=== PATIENT | male | born 1955 | race Caucasian/White ===

== ENCOUNTER → 2024-10-04 | Outpatient (CLI) | payer MEDICARE, SELFPAY ==
--- NOTE | 2024-10-04 14:00 | XR_ITS ---
Examination: CT pelvis without intravenous contrast. 2-D sagittal and coronal reconstructions. Date and time of exam:October 04, 2024 1343 hours INDICATIONS: Diagnosis malignant neoplasm prostate July 2023 restaging CTDI: vol (mGy) :4.99 DLP: (mGycm) : 169 Technique: Multiple 3 mm axial sections of the pelvis have been obtained with the 64 slice high resolution scanner. 2-D sagittal and coronal reconstructions. Low dose protocols were performed. One or more of the following dose reduction techniques were used; automated exposure control, adjustment of the mA and/or KV according to patient size, use of iterative reconstruction technique. Findings: Normal appendix No pelvic lymphadenopathy Colonic diverticulosis, no diverticulitis Prostate is markedly enlarged with irregular contour, AP dimension 5.9 cm Negative for osteoblastic metastatic disease IMPRESSION: Marked prostatomegaly, AP dimension 5.9 cm irregular contour No pelvic lymphadenopathy Negative for osteoblastic metastatic disease
== END | disposition home or self-care (01) ==
PROVIDERS: PCP Internal Medicine; Referring Provider Surgery; Visit Provider Surgery
DX: N40.0 Benign prostatic hyperplasia without lower urinary tract symptoms (principal); C61 Malignant neoplasm of prostate
CPT/HCPCS: 72192

== ENCOUNTER 2024-12-13 13:35 | Outpatient (RCR) | payer MEDICARE, SELFPAY ==
--- NOTE | 2024-12-13 15:57 | CTCCONSULT_ITS ---
[facility] [address] [place], [place] [address] Consultation Note Date: 12/13/2024 MR#: [id number] Name: JENNIFER DELVALLE : 1955 Dx: C61 prostate cancer Attending physician. Vikas Vila MD Referring physician. Ronald Yee MD Reason for consultation. 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 History of Present Illness: Patient is a 67-year-old gentleman with PSA of 8.9 with prostate grade 6 and 7 (3+3) (3+4) group 1 and 2 involving right and left prostate. On biopsy of 08/10/2023. Patient appeared to opt for watchful waiting but when PSA madeline to 16.8 on 03/04/2024 was interested in getting it treated. Bone scan 12/04/2023 nonspecific uptake in C-spine L-spine which was negative on plain x-rays, for mets. Had pelvic CT 10/04/2024 revealing prostatomegaly with no pelvic lymphadenopathy and negative for osteoblastic met disease. Patient is now seeing Dr Yee who has initiated Lupron shots a month ago. Patient now referred for radiation oncology consultation. Past Medical History: High blood pressure diabetes prostatism Meds. Metformin lisinopril Tums Ernandez and atorvastatin Flomax Social History: Patient bilingual originally from [place] is a moderate drinker non-smoker Review of Systems: Has had nocturia prostatism symptoms. Physical Exam: General: Well-appearing gentleman in no acute distress HEENT: Atraumatic normocephalic extraocular is intact no oral lesion no cervical or supraclavicular adenopathy. CV: Chest clear to auscultation heart regular rate and rhythm ABD: Soft no organomegaly or tenderness EXT: No signs of clubbing or edema Assessment:#1. Group 1 and 2 adeno CA prostate biopsy 08/07/2023. #2. Patient opted for watchful waiting initially. #3. With rising PSA from 8.9 - 16.8 has opted for treatments and received his first Lupron injections under Dr. Yee a month ago according to patient #4. Shall schedule patient for CT SIM, over the next few weeks, and approximately 7000 cGy to the prostate region will be delivered to patient. Side effects explained. #5. Thank you very much for allowing me to evaluate this patient. Cc: Vikas Yee MD Electronically signed by: Daniel Reina MD, DABR 12/13/2024 3:55 PM
--- NOTE | 2024-12-13 15:59 | CTCTXPLN_ITS ---
[facility] [address] [place], [place] [address] Physician Clinical Treatment Planning Note Date of Service: 12/13/2024 Name: JENNIFER Love.: 1955 The patient has agreed to proceed with Radiation therapy. Tests and supporting medical records were interpreted to assist in defining the tumor location and extent of disease. Further imaging will be necessary to contour and delineate the volume to which the XRT will be provided. A. Treatment Intent: Curative B. Modality: 10 MV C. Requested Technique: VMAT D. Treatment Site: Prostate E. Critical structures to be contoured on plan: F. In order to accomplish this plan, I am ordering/Prescribing the followin. Simulations (s) will be performed to accomplish a reproducible treatment position, to determine optimal treatment portals/beam arrangements, to design beam modifying devices and verify treatment portals on patient prior to the commencement of Radiation Therapy. Pelvis 2. Devices; for immobilization and beam shaping: Vac-Gunner 3. CT Guidance for placement of XRT fleming Scan area: 4. Portal images Frequency: 5. Invivo transit dose measurement once per week on all VMAT patients. 6. Special Physics Consult Requested for: 7. Other requests: G. Dose Objectives: Curative Electronically signed by: Daniel Reina M.D. 12/13/2024 3:56 PM
--- NOTE | 2024-12-13 16:00 | CTCTXPLNST_ITS ---
Radiation Oncology Treatment Planning Sheet Name: JENNIFER DELVALLE MR#: [id number] : 1955 Dx: Date of Service: 12/13/2024 Account #: ?? Pt Treatment Intent: curative palliative other: Stage: Procedure CPT # Ordered Spec. Procedure 40446 Tim Complex (set-up) 66896 pelvis 1 Tim Simple 88262 IMRT Plan 70935 1 MLC Devices VMAT 48989 3 Tim 3 D 58127 TRTMT dev Complex 68159 1 TRTMT dev simple 44772 Basic Moe 82943 6 Special Dosimetry 43136 Spec Physics 67167 Port Films 59229 SRS Cranial/1FX 27296 SBR 5 FX or Less /ex: 5 = 5 fx 18339 IMRT Simple 17025 7000 28 IMRT Complex 43246 IGRT 55981 25 Rad del com 6-10 35141 Rad del com 11- 82006 Cont Med Physics 33015 7 Treatment Planning 44498 1 Rad del com 20 mev 55144 Rad del inter 6-10 43803 Rad del inter 11 73033 Rad del simple 6-10 60179 Rad del simple 11 11645 Special Port Plan 07438 TRTMT dev inter 96429 Isodose Complex 65482 Isodose simple 72799 Resp Motion Mgmt Simulation 91319 Placement of Fiducial Markers 27436 Electronically Signed By: Daniel Reina MD, DABR 12/13/2024 3:57 PM
== END 2024-12-16 23:59 | disposition home or self-care (01) ==
LOC: SCTC 13:35
PROVIDERS: PCP Internal Medicine; Referring Provider Surgery; Visit Provider Radiology Therapeutic Radiology
DX: C61 Malignant neoplasm of prostate (principal)
CPT/HCPCS: 99213; G0463

== ENCOUNTER 2025-05-10 08:57 | Outpatient (RCR) | payer MEDICARE, SELFPAY ==
--- NOTE | 2025-05-02 15:42 | CTCFLWUP_ITS ---
[facility] [address] [place], [place] [address] FOLLOW-UP NOTE Date: 05/02/2025 MR#: [id number] Name: JENNIFER DELVALLE : 1955 Dx: C61 Malignant neoplasm of prostate Patient was scheduled to get radiation earlier this year in late November but had insurance change and could not get this done. Patient had 3 monthly injections of Lupron last 1 in February according to the patient. Initially engaged in watchful waiting but PSA has risen to 16.8. prostate biopsy 08/07/2024 was group 1 and 2. CA of prostate. Brief discussion regarding the course of treatment and side effects were made consent signed. Electronically signed by: Daniel Reina M.D. 05/02/2025 3:40 PM
--- NOTE | 2025-05-02 15:43 | CTCTXPLN_ITS ---
[facility] [place] [address] [place], [place] [address] Physician Clinical Treatment Planning Note Date of Service: 05/02/2025 Name: JENNIFER Love.: 1955 The patient has agreed to proceed with Radiation therapy. Tests and supporting medical records were interpreted to assist in defining the tumor location and extent of disease. Further imaging will be necessary to contour and delineate the volume to which the XRT will be provided. A. Treatment Intent: Curative B. Modality: 10 MV C. Requested Technique: VMAT D. Treatment Site: Prostate E. Critical structures to be contoured on plan: F. In order to accomplish this plan, I am ordering/Prescribing the followin. Simulations (s) will be performed to accomplish a reproducible treatment position, to determine optimal treatment portals/beam arrangements, to design beam modifying devices and verify treatment portals on patient prior to the commencement of Radiation Therapy. Pelvis 2. Devices; for immobilization and beam shaping: Vac-Gunner 3. CT Guidance for placement of XRT fleming Scan area: 4. Portal images Frequency: 5. Invivo transit dose measurement once per week on all VMAT patients. 6. Special Physics Consult Requested for: 7. Other requests: G. Dose Objectives: Curative Electronically signed by: Daniel Reina M.D. 05/02/2025 3:41 PM
--- NOTE | 2025-05-02 15:44 | CTCTXPLNST_ITS ---
Radiation Oncology Treatment Planning Sheet Name: JENNIFER DELVALLE MR#: [id number] : 1955 Dx: C61 Malignant neoplasm of prostate Date of Service: 05/02/2025 Account #: ?? Pt Treatment Intent: curative palliative other: Stage: Procedure CPT # Ordered Spec. Procedure [id number] Tim Complex (set-up) 90848 Pelvis 1 Tim Simple 82150 IMRT Plan 98819 1 MLC Devices VMAT 01272 3 Tim 3 D 36807 TRTMT dev Complex 66589 1 TRTMT dev simple 74866 Basic Moe 09324 6 Special Dosimetry 07343 Spec Physics 81097 Port Films 88625 SRS Cranial/1FX 00656 SBR 5 FX or Less /ex: 5 = 5 fx 50709 IMRT Simple 76597 7000 28 IMRT Complex 05870 IGRT 29681 25 Rad del com 6-10 15538 Rad del com 11- 05827 Cont Med Physics 59978 7 Treatment Planning 09795 1 Rad del com 20 mev 16432 Rad del inter 610 01815 Rad del inter 11 62237 Rad del simple 6-10 56545 Rad del simple 11- 40464 Special Port Plan 91170 TRTMT dev inter 03800 Isodose Complex 36751 Isodose simple 52951 Resp Motion Mgmt Simulation 85548 Placement of Fiducial Markers 22668 Electronically Signed By: Daniel Reina MD, DABR 05/02/2025 3:42 PM
== END 2025-05-18 23:59 | disposition home or self-care (01) ==
LOC: SCTC 08:57
PROVIDERS: PCP Internal Medicine; Referring Provider Internal Medicine; Visit Provider Radiology Therapeutic Radiology
DX: C61 Malignant neoplasm of prostate (principal)
CPT/HCPCS: 99213; 99424; 99425; G0463

== ENCOUNTER 2025-08-03 14:21 | Outpatient (RCR) | payer MEDICARE, SELFPAY ==
--- NOTE | 2025-08-03 15:08 | CTCFLWUP_ITS ---
[facility] [address], [place] [address] FOLLOW-UP NOTE Date: 08/03/2025 MR#: [id number] Name: JENNIFER DELVALLE : 1955 Dx: C61 Malignant neoplasm of prostate Due to insurance related delay had to resubmit authorization for prostate radiation. Side effects explained. 28 fractions 7000 cm prostate region. Electronically signed by: Daniel Reina M.D. 08/03/2025 3:06 PM
--- NOTE | 2025-08-03 15:12 | CTCTXPLN_ITS ---
[facility] [address] [place], [place] [address] Physician Clinical Treatment Planning Note Date of Service: 08/03/2025 Name: JENNIFER Love.: 1955 The patient has agreed to proceed with Radiation therapy. Tests and supporting medical records were interpreted to assist in defining the tumor location and extent of disease. Further imaging will be necessary to contour and delineate the volume to which the XRT will be provided. A. Treatment Intent: Curative B. Modality: 10 MV C. Requested Technique: VMAT D. Treatment Site: Pelvis E. Critical structures to be contoured on plan: F. In order to accomplish this plan, I am ordering/Prescribing the followin. Simulations (s) will be performed to accomplish a reproducible treatment position, to determine optimal treatment portals/beam arrangements, to design beam modifying devices and verify treatment portals on patient prior to the commencement of Radiation Therapy. Pelvis 2. Devices; for immobilization and beam shaping: Vac-Gunner 3. CT Guidance for placement of XRT fleming Scan area: 4. Portal images Frequency: 5. Invivo transit dose measurement once per week on all VMAT patients. 6. Special Physics Consult Requested for: 7. Other requests: G. Dose Objectives: Curative Electronically signed by: Daniel Reina M.D. 08/03/2025 3:09 PM
--- NOTE | 2025-08-03 15:13 | CTCTXPLNST_ITS ---
Radiation Oncology Treatment Planning Sheet Name: JENNIFER DELVALLE MR#: [id number] : 1955 Dx: C61 Malignant neoplasm of prostate Date of Service: 08/03/2025 Account #: ?? Pt Treatment Intent: curative palliative other: Stage: Procedure CPT # Ordered Spec. Procedure 65338 Tim Complex (set-up) 89175 Pelvis 1 Tim Simple 19457 IMRT Plan 92165 1 MLC Devices VMAT 50302 3 Tim 3 D 21939 TRTMT dev Complex 47861 Vac-Gunner 1 TRTMT dev simple 50688 Basic Moe 01032 6 Special Dosimetry 91003 Spec Physics 94492 Port Films 88277 SRS Cranial/1FX 67961 SBR 5 FX or Less /ex: 5 = 5 fx 85339 IMRT Simple 83298 7000 28 IMRT Complex 86673 IGRT 62349 28 Rad del GINKGOTREE 6-10 63970 Rad del GINKGOTREE 11 45806 Cont Med Physics 18985 7 Treatment Planning 84554 1 Weekly Evaluation 90853 7 Rad del com 20 mev 99305 Special Port Plan 54151 TRTMT dev inter 03148 Isodose Complex 95008 Isodose simple 15015 Resp Motion Mgmt Simulation 31604 Placement of Fiducial Markers 51569 Electronically Signed By: Daniel Reina MD, MIGUELR 08/03/2025 3:10 PM
== END 2025-08-18 23:59 | disposition home or self-care (01) ==
LOC: SCTC 14:21
PROVIDERS: PCP Internal Medicine; Referring Provider Internal Medicine; Visit Provider Radiology Therapeutic Radiology
DX: C61 Malignant neoplasm of prostate (principal)
CPT/HCPCS: 99213; G0463

== ENCOUNTER 2025-10-18 08:29 | Outpatient (RCR) | payer MEDICARE, SELFPAY | END 2025-10-18 23:59 | disposition home or self-care (01) | LOC: SCTC 08:29 | PROVIDERS: PCP Internal Medicine; Referring Provider Internal Medicine; Visit Provider Radiology Therapeutic Radiology | DX: Z51.0 Encounter for antineoplastic radiation therapy (principal); C61 Malignant neoplasm of prostate | CPT/HCPCS: 77014; 77290; 77300; 77301; 77334; 77336; 77338; 77385; 77387; 77407 ==